=== PATIENT | male | born 1945 | race Caucasian/White ===

== ENCOUNTER 2017-11-12 21:04 | Emergency (ER) | payer OTHER ==
[~2017-11-12] VITALS: Ht 160 cm; Wt 112.5 kg
[~2017-11-12 21:04] MED LIST: DETROL LA4 MG; HYZAAR 50/12.51 TAB; PYRIDIUM DS200 MG
[2017-11-12] MEDS ORDERED: VALSARTAN-HCTZ1 EAC4 (21:55)
[2017-11-12] MEDS ORDERED: FORTAMET500 MG (21:56)
== END 2017-11-13 02:32 | disposition home or self-care (01) ==
LOC: ER 21:04
DX: S00.03XA Contusion of scalp, initial encounter (principal); R07.89 Other chest pain; W18.2XXA Fall in (into) shower or empty bathtub, initial encounter; Y93.E8 Activity, other personal hygiene; Y92.012 Bathroom of single-family (private) house as the place of occurrence of the external cause; Y99.8 Other external cause status

== ENCOUNTER 2020-03-09 15:34 | Emergency (ER) | payer OTHER ==
[~2020-03-09] VITALS: Ht 162.6 cm; Wt 115.2 kg
[~2020-03-09 15:34] MED LIST changes: +FORTAMET500 MG; +VALSARTAN-HCTZ1 EAC4
[2020-03-09] MEDS ORDERED: METFORMIN HCL500 M4 PO (16:05)
[2020-03-09] MEDS ORDERED: LATANOPROST2.5 ML OP (16:05)
[2020-03-09] MEDS ORDERED: VALSARTAN320 MG PO (16:06)
[2020-03-09] MEDS ORDERED: SIMVASTATIN40 MG PO (16:06)
[2020-03-09] MEDS ORDERED: TOLTERODINE TART2 MG PO (16:06)
[2020-03-09] MEDS ORDERED: TUSNEL LIQUID178 ML PO (21:48)
[2020-03-09] MEDS ORDERED: ZITHROMAX500 MG PO (21:48)
[2020-03-09] MEDS ORDERED: PROAIR RESPICL90 MCG IH (21:49)
== END 2020-03-09 22:30 | disposition home or self-care (01) ==
LOC: ER 15:34
DX: U07.1 COVID-19 (principal); B34.9 Viral infection, unspecified

== ENCOUNTER 2021-08-31 20:40 | Inpatient (IN) | payer OTHER ==
[~2021-08-31] VITALS: Ht 162.6 cm; Wt 108.9 kg
[~2021-08-31 20:40] MED LIST changes: +LATANOPROST2.5 ML OP; +METFORMIN HCL500 M4 PO; +PROAIR RESPICL90 MCG IH; +SIMVASTATIN40 MG PO; +TOLTERODINE TART2 MG PO; +TUSNEL LIQUID178 ML PO; +VALSARTAN320 MG PO; +ZITHROMAX500 MG PO
--- NOTE | 2021-08-31 21:22 | NUR ---
SE RECIBE PACIENTE ALERTA, ORIENTADO X 3 ESFERAS REFIERE TENER DOLOR MUSCULAR, Y FIEBRE . Y DEBILIDAD. SE ESTIMAN S/V SE UBICA EN CANDACE DE ESPERA.
--- NOTE | 2021-08-31 22:06 | NUR ---
SE LE JEISON LAS MUETRAS DE IHSAN, ALONDRA LA ORDEN MEDICA.
--- NOTE | 2021-08-31 23:19 | NUR ---
PTE REEVALUADO POR ANA ROSA REALIZA ORDENES Y SE ORIENTA APTE SOBRE ORDEN MEDICA,SE ADMINISTRA MEDICAMENTO EL CUAL TOLERA,SE ENTREGA ENVASES DE U/A Y U/C Y SE ORIENTA ACOMO TOMARLO Y SE NOTIFICA A LEIGH SOBRE X RAY,PTE EN ESPERA DE RESULTADOS PARA REEVALUACION.
--- NOTE | 2021-09-01 00:56 | NUR ---
TX. OFRECIDO POR MIS. KEARNEY QUIEN ORIENTA AL PACIENTE SOBRE EL TX. EXTRAE MUESTRAS DE IHSAN BAJO MEDIDAS ASEPTICAS ROTULA Y ENVIA AL LABORATORIO. CANALIZA Y ADMINISTRA MEDICAMENTOS ALONDRA ORDEN MEDICA.
--- NOTE | 2021-09-01 07:54 | NUR ---
SE RECIBE PTE MASCULINO ALERTA Y ORIENTADO EN [place] ESFERAS DEL TURNO ANTERIOR, CON BUEN PATRON RESPIRATORIO Y ERWIN DE DOLOR. VENOPUNCION PATENTE, ERWIN DE EDEMA Y ERITEMA EN H/L. PTE EN JOSH NIVEL MAS BAJO CON BARANDAS ELEVADAS Y FRENOS COLOCADOS POR SEGURIDAD. PENDIENTE CONSULTA CON MEDICINA INTERNA YA NOTIFICADA.
[2021-09-06] MEDS ORDERED: MELATONIN5 M2 PO (11:37)
[2021-09-06] MEDS ORDERED: TAMS0.4C PO (11:37)
[2021-09-06] MEDS ORDERED: AMOX-CLAV 875-1 EAC1 PO (11:37)
[2021-09-06] MEDS ORDERED: PEPCID AC20 MG PO (11:37)
[2021-09-06] MEDS ORDERED: INTESTINEX680 M1 PO (11:37)
[2021-09-06] MEDS ORDERED: TRAMADOL HCL50 MG PO (11:37)
== END 2021-09-06 13:47 | disposition home or self-care (01) | DRG 728 ==
LOC: ER 20:40 → SURG 09-01 11:08 → MEDI 09-01 11:08 → MEDJ 09-01 14:04 → SEC-K 09-01 14:25 → MEDJ 09-01 14:27 → SURG 09-01 14:31
PROVIDERS: ADMIT Internal Medicine; ATTEND Internal Medicine
DX: N41.0 Acute prostatitis (principal); N17.8 Other acute kidney failure; N39.0 Urinary tract infection, site not specified; E86.0 Dehydration; E87.8 Other disorders of electrolyte and fluid balance, not elsewhere classified; I10 Essential (primary) hypertension; E66.01 Morbid (severe) obesity due to excess calories; Z79.4 Long term (current) use of insulin; Z20.822 Contact with and (suspected) exposure to COVID-19; E11.65 Type 2 diabetes mellitus with hyperglycemia

== ENCOUNTER 2023-12-01 09:48 | Inpatient (IN) | payer OTHER ==
[~2023-12-01] VITALS: Ht 167.6 cm; Wt 113.4 kg
[~2023-12-01 09:48] MED LIST changes: +AMOX-CLAV 875-1 EAC1 PO; +INTESTINEX680 M1 PO; +MELATONIN5 M2 PO; +PEPCID AC20 MG PO; +TAMS0.4C PO; +TRAMADOL HCL50 MG PO
[2023-12-01] MEDS ORDERED: LACTULOSE 10 G/15 ML ML PO STA (11:40)
[2023-12-01] MEDS ORDERED: MAGNESIUM HYDROXIDE 400 MG/5 ML ML PO STA (11:41)
[2023-12-01] MEDS ORDERED: LACTULOSE 20 G/30 ML BLIST.PACK ONE (11:43)
[2023-12-01] MEDS ORDERED: MAGNESIUM HYDROXIDE 30 ML BLIST.PACK PO ONE (11:43)
[2023-12-01 13:58] LABS: HEMATOCRIT 42.9 % (39.0-48.0); HEMOGLOBIN 14.5 g/dL (13-16.00); MEAN CELL VOLUME 89.6 fL (80.0-100.00); MEAN CORPUSCULAR HEMOGLOBIN 30.2 pg (27.00-32.0); MEAN CORPUSCULAR HGB CONC 33.7 g/dl (32.0-36.0); PLATELET COUNT 218 K/uL (150-450); RED BLOOD COUNT 4.79 M/uL (4.00-6.00); RED CELL DISTRIBUTION WIDTH 14.6 % (11.5-14.5)
[2023-12-01] MEDS ORDERED: 0.9 % SODIUM CHLORIDE 1,000 ML IV STA (14:08)
[2023-12-01] MEDS ORDERED: LEVALBUTEROL HCL 1.25 MG/3 ML SOLUTION IH STA (14:09)
[2023-12-01] MEDS ORDERED: PIPERACILLIN/TAZOBACTAM SODIUM 3.375 GM VIAL IV STA (14:09)
[2023-12-01 14:22] LABS: ALBUMIN 4.4 gm/dL (3.4-5.0); BILIRUBIN TOTAL 0.75 mg/dL (0.3-1.2); BILIRUBIN,CONJUGATED 0.18 mg/dL (0.0-0.2); BILIRUBIN,UNCONJUGATED 0.57 mg/dL (0.0-0.6); CALCIUM 9.8 mg/dL (8.5-10.1); CREATININE SERUM 2.33 mg/dL (0.70-1.30); GFR 27.09; POTASSIUM 3.93 mEq/L (3.5-5.1); TOTAL PROTEIN 8.6 gm/dL (6.4-8.2)
[2023-12-01] MEDS ORDERED: PIPERACILLIN/TAZOBACTAM SODIUM 3.375 GM VIAL IV ONE (14:33)
[2023-12-01 15:40] LABS: URINE APPEARANCE Cloudy; URINE BILIRRUBIN Small (NEGATIVE); URINE BLOOD Small; URINE COLOR Dark Yellow; URINE GLUCOSE Negative (NEGATIVE); URINE KETONE 15 (NEGATIVE); URINE LEUKOCYTE Moderate; URINE NITRATE Negative; URINE PROTEIN 30 (NEGATIVE)
[2023-12-01 15:44] LABS: URINE EPITHELIAL CELLS 141.1 uL (0.0-38.8); URINE RBC 13.5 uL (0.0-20.8); URINE WBC 313.8 uL (0.0-23.2)
[2023-12-01 16:08] LABS: URINE CAST > 21.83 uL (0.0-1.40)
[2023-12-01] MEDS ORDERED: NA PHOS,M-B/NA PHOS,DI-BA 1 BOTTLE ENEMA RECTAL STA (16:25)
[2023-12-01] MEDS ORDERED: PIPERACILLIN/TAZOBACTAM SODIUM 2.25 GM in 0.9 % SODIUM CHLORIDE 50 ML IV SCH (18:41)
[2023-12-01] MEDS ORDERED: TAMSULOSIN HCL 0.4 MG CAP PO SCH (18:44)
[2023-12-01] MEDS ORDERED: ONDANSETRON HCL 4 MG in 0.9 % SODIUM CHLORIDE 50 ML IV PRN (18:45)
[2023-12-01] MEDS ORDERED: 0.9 % SODIUM CHLORIDE 1,000 ML IV SCH (18:45)
[2023-12-01] MEDS ORDERED: MEPERIDINE HCL/PF 25 MG/ML VIAL IM PRN (18:45)
[2023-12-01] MEDS ORDERED: ACETAMINOPHEN 500 MG GEL..CAP PO PRN (18:45)
[2023-12-01] MEDS ORDERED: TAMSULOSIN HCL 0.4 MG CAP PO ONE (20:03)
[2023-12-01 20:16] LABS: PARTIAL THROMBOPLASTIN TIME 24.7 SECONDS (22.0-34.0); PROTHROMBIN TIME 10.9 SECONDS (9.0-11.5)
[2023-12-01] MEDS ORDERED: LIDOCAINE HCL VISCOUS 20MG/ML BLIST 15ML MM ONE (21:28)
[2023-12-01] MEDS ORDERED: INSULIN LISPRO 1,000 UNIT/10 ML UNITS SUBCUTANEO PRN (22:45)
[2023-12-01] MEDS ORDERED: DEXTROSE 50 % IN WATER 0.5 G/ML DISP.SYRIN IV PRN (22:45)
[2023-12-02] MEDS ORDERED: FAMOTIDINE/PF 20 MG in 0.9 % SODIUM CHLORIDE 8 ML IV PUSH SCH (09:00)
[2023-12-02] MEDS ORDERED: ENOXAPARIN SODIUM 40 MG/0.4 ML SYRINGE SUBCUTANEO SCH (09:00)
[2023-12-02] MEDS ORDERED: SIMVASTATIN 40 MG TABLET PO SCH (17:00)
== END 2023-12-01 23:15 | disposition expired | DRG 389 ==
LOC: ER 09:48 → SEC-K 20:11 → MEDJ 21:03 → SEC-K 23:05
PROVIDERS: General Practice; ADMIT Internal Medicine; ATTEND Internal Medicine
PROC: BW21ZZZ Computerized Tomography (CT Scan) of Abdomen and Pelvis (ICD-10-PCS; principal; 2023-12-01)
DX: K56.609 Unspecified intestinal obstruction, unspecified as to partial versus complete obstruction (principal); N17.9 Acute kidney failure, unspecified; N39.0 Urinary tract infection, site not specified; I46.9 Cardiac arrest, cause unspecified; Z20.822 Contact with and (suspected) exposure to COVID-19; E11.9 Type 2 diabetes mellitus without complications; N18.9 Chronic kidney disease, unspecified